=== PATIENT | female | born 1980 | race Two or more races ===

== ENCOUNTER → 2018-05-17 | Outpatient (CLI) | payer OTHER ==
--- NOTE | 2018-05-18 11:13 | KCIC ---
Examination: MRI right midfoot without contrast HISTORY: History of right foot pain COMPARISON: None available Technique: Multiplanar, multisequence MR imaging of the right foot was performed without contrast. FINDINGS: The visualized anterior tibiofibular ligament, posterior tibiofibular ligament appear intact. There is increased T2 signal identified in the peroneus longus tendon just plantar to the distal aspect of the calcaneus likely a longitudinal split tear/tendinosis measuring 1 cm with small amount of fluid in the tendon sheath of the peroneus longus tendon. The attachment of the peroneus brevis tendon, peroneus longus tendon grossly appears intact. The Lisfranc ligament is intact. The alignment of the tarsal bones, tarsometatarsal joints, metatarsophalangeal joints grossly appears unremarkable. Fat is present within the sinus tarsi. The Achilles tendon is not included on the images. IMPRESSION: 1. Increased T2 signal identified in the peroneus longus tendon plantar to the distal aspect of the calcaneus likely tendinosis or small longitudinal split tear with small amount of fluid in tendon sheath of the peroneus longus tendon likely tenosynovitis. Electronically signed by: Kishan Dougherty MD (05/18/2018 11:09 AM) [facility]
== END | disposition home or self-care (01) ==
LOC: KCIC MRI 14:49
PROVIDERS: ATTEND Family Medicine
DX: S93.601D Unspecified sprain of right foot, subsequent encounter (principal); X58.XXXD Exposure to other specified factors, subsequent encounter
CPT/HCPCS: 73718